=== PATIENT | male | born 1960 | race American Indian/Alaskan Native ===

== ENCOUNTER 2017-08-23 06:03 | Inpatient (IN) | payer MEDICARE, OTHER ==
[2017-08-18 12:05] VITALS: BMI 33.6
--- NOTE | 2017-08-23 07:04 | CP.PCM.HP ---
History of Present Illness - History of Present Illness History of Present Illness: CC: Here for scheduled L hip revision HPI: This is a 56 y/o male with MHx significant for HTN, HLD, 'hyperglycemia', prior R CVA, and seizure disorder who presents for revision of L hip. Patient has no c/c at this time. Denies CP, SOB. Denies f/c/n/v/d. Denies dysuria. Patient has clearance in chart from a Dr. Audie Galeas. Labs, CXR, EKG all WNL. ROS: 14 systems reviewed, negative other than HPI MHx: HTN, HLD, 'hyperglycemia', R CVA, seizure disorder SHx: L hip surgery, meningioma surgery Allergies: contrast dye Medications: Per med rec Family Hx: Reviewed, no relevant findings Social Hx: Lives with family, no tobacco, no EtOH Surrogate: , info pending Present on Admission - Present on Admission Any Indicators Present on Admission: No Past Patient History - Past Medical History & Family History Past Medical History?: Yes - Past Social History Smoking Status: Never Smoked - CARDIAC Hx Cardiac Disorders: Yes Hx Hypertension: Yes - PULMONARY Hx Respiratory Disorders: No - NEUROLOGICAL Hx Neurological Disorder: Yes Hx Seizures: Yes (after brain surgery-1997) - HEENT Hx HEENT Problems: No - RENAL Hx Chronic Kidney Disease: No - ENDOCRINE/METABOLIC Hx Endocrine Disorders: No - HEMATOLOGICAL/ONCOLOGICAL Hx Blood Disorders: No - INTEGUMENTARY Hx Dermatological Problems: No - MUSCULOSKELETAL/RHEUMATOLOGICAL Hx Musculoskeletal Disorders: Yes Other/Comment: numbness on left - GASTROINTESTINAL Hx Gastrointestinal Disorders: No - GENITOURINARY/GYNECOLOGICAL Hx Genitourinary Disorders: Yes Hx Prostate Problems: Yes (enlarge) - PSYCHIATRIC Hx Psychophysiologic Disorder: No - SURGICAL HISTORY Hx Surgeries: Yes Hx Orthopedic Surgery: Yes (left hip total) - ANESTHESIA Hx Anesthesia: Yes Hx Anesthesia Reactions: No Hx Malignant Hyperthermia: No Has any member of the family had a problem w/ anesthesia?: No Meds Allergies/Adverse Reactions: Allergies Allergy/AdvReac Type Severity Reaction Status Date / Time constrast Allergy VOMITING Uncoded 08/18/17 12:06 Physical Exam - Constitutional Appears: No Acute Distress - Head Exam Head Exam: ATRAUMATIC, NORMOCEPHALIC - Eye Exam Eye Exam: EOMI, PERRL - ENT Exam ENT Exam: Mucous Membranes Moist - Neck Exam Neck exam: Positive for: Full Rom - Respiratory Exam Respiratory Exam: Clear to Auscultation Bilateral, NORMAL BREATHING PATTERN - Cardiovascular Exam Cardiovascular Exam: REGULAR RHYTHM, +S1, +S2 - GI/Abdominal Exam GI & Abdominal Exam: Normal Bowel Sounds, Soft - Extremities Exam Extremities exam: Positive for: full ROM, normal inspection Additional comments: L hip stiffness - Neurological Exam Neurological exam: Alert, CN II-XII Intact, Oriented x3 - Psychiatric Exam Psychiatric exam: Normal Affect, Normal Mood - Skin Skin Exam: Dry, Warm Results - Vital Signs Recent Vital Signs: Last Vital Signs Temp 98.8 F 08/23/17 06:53 Pulse 100 H 08/23/17 06:55 Resp 20 08/23/17 06:53 BP 147/104 H 08/23/17 06:53 Pulse Ox 97 08/23/17 06:53 Assessment & Plan (1) Aftercare following left hip joint replacement surgery Assessment and Plan: 56 y/o male here for scheduled L hip revision. 1) L hip surgery -Routine post-op care -Pain management 2) HTN -- resume home medications post surgery 3) HLD -- resume statins 4) 'hyperglycemia' --accuchecks ACHS for now, coverage if needed 5) Seizure disorder -- continue home medications 6) DVT PPx -- Lovenox SQ when cleared by surgery Status: Acute (2) HTN (hypertension) Status: Acute (3) HLD (hyperlipidemia) Status: Acute (4) Hyperglycemia Status: Acute
[2017-08-23] MEDS ORDERED: Lactated Ringer's 1,000 ML IV ONE ×2 (07:22→20:00)
[2017-08-23] MEDS ORDERED: Absorbable Gelatin Sponge Size 100 ONE (14:18)
[2017-08-23] MEDS ORDERED: Thrombin Topical 5,000 Int Units Spray Kit ONE (14:18)
[2017-08-23] MEDS ORDERED: Bupivacaine 0.5% Inj(30mL) ONE (14:18)
[2017-08-23] MEDS ORDERED: Bacitracin Ointment 30 GM TUBE ONE (14:18)
[2017-08-23] MEDS ORDERED: Propofol 10 mg/ml Inj (20 ML) ONE ×2 (14:58→19:48)
[2017-08-23] MEDS ORDERED: Midazolam 2 MG/2 ML VIAL ONE (14:58)
[2017-08-23] MEDS ORDERED: Morphine 1 mg/ml preservative-free Inj(Duramorph) ONE (14:58)
[2017-08-23] MEDS ORDERED: Rocuronium 10 mg/ml (5 ml) ONE ×2 (16:53→19:47)
[2017-08-23] MEDS ORDERED: Phenylephrine 10 mg/ml Inj ONE (17:01)
[2017-08-23] MEDS ORDERED: Vecuronium 10 mg Inj ONE (17:18)
[2017-08-23] MEDS ORDERED: Bacitracin OINT 15GM TOP ONE (20:07)
--- NOTE | 2017-08-23 20:21 | PCM.SURG1 ---
Surgeon's Initial Post Op Note - Surgeon's Notes Surgeon: Clotilde Precast [employer] Installer: CURT Iniguez/ruben Type of Anesthesia: General LMA, Spinal Anesthesia Administered By: Dr Cat Pre-Operative Diagnosis: Painful L Bipolar hip replacement Operative Findings: wellfixed femoral stem. abrasion/wear erosion acetabulumwith metallosis. synovitis Post-Operative Diagnosis: as above Operation Performed: Revision L THR ( femoral head/acetabular compmnent). femoral neck osteotomy. release iliopsoas tendon. autograft bone graft to acetabulum. computer navigation Specimen/Specimens Removed: bipolar comonent /femoral head/bone/synovium/tendon Estimated Blood Loss: EBL {In ML}: 100 Blood Products Given: N/A Drains Used: No Drains Date of Surgery/Procedure: 08/23/17 Time of Surgery/Procedure: 17:45 (time in room 1630/anaesthesia induction time)
[2017-08-23] MEDS ORDERED: Oxycodone/Acetaminophen 5/325 mg Tab PO PRN (20:36)
[2017-08-23] MEDS ORDERED: DiphenhydrAMINE 50 mg/ml Inj IVP PRN (20:46)
[2017-08-23] MEDS ORDERED: Naloxone 0.4 mg/ml Inj (Adult) IVP PRN (21:04)
[2017-08-23] MEDS ORDERED: Pneumococcal 23-Valent Vaccine IM ONE (23:12)
[2017-08-24] MEDS: ceFAZolin 2 GM in Sodium Chloride 0.9% 100 ML IVPB SCH ×2 (01:30→09:52)
[2017-08-24 05:27] LABS: HEMOGLOBIN 14.1 g/dL (12.0-18.0); MEAN CELL VOLUME 94.3 fl (80.0-94.0); MEAN CORPUSCULAR HEMOGLOBIN 31.6 pg (27.0-31.0); MEAN CORPUSCULAR HGB CONC 33.5 g/dL (33.0-37.0); RBC 4.44 Mil/uL (4.40-5.90); RED CELL DISTRIBUTION WIDTH 13.8 % (11.5-14.5)
[2017-08-24 05:36] LABS: BLOOD UREA NITROGEN 11 mg/dl (9-20); CALCIUM 9.4 mg/dL (8.4-10.2); GFR AFRICAN-AMERICAN > 60; GFR NON-AFRICAN AMERICAN > 60
--- NOTE | 2017-08-24 08:16 | CP.PCM.PN ---
Subjective - Date & Time of Evaluation Date of Evaluation: 08/24/17 Time of Evaluation: 08:14 - Subjective Subjective: Patient seen and examined at bedside comfortable. Pain well controlled. He is having difficulty urinating this AM with history of BPH, urology was consulted. Has not been OOB yet this AM. No acute events overnight. Objective - Vital Signs/Intake and Output Vital Signs (last 24 hours): Temp Pulse Resp BP Pulse Ox 98.6 F 99 H 21 152/57 H 99 08/24/17 04:00 08/24/17 06:00 08/24/17 06:00 08/24/17 06:00 08/24/17 06:00 Intake and Output: 08/24/17 08/24/17 06:59 18:59 Intake Total 500 Balance 500 - Medications Medications: Current Medications Acetaminophen (Tylenol 325mg Tab) 325 mg PO Q4 PRN PRN Reason: Pain, Mild (1-3) Aripiprazole (Abilify) 5 mg PO DAILY [facility] Aspirin (Ecotrin) 81 mg PO BID [facility] Cholecalciferol (Vitamin D) 1,000 intlu PO BID [facility] Cyclobenzaprine HCl (Flexeril) 5 mg PO DAILY [facility] Diphenhydramine HCl (Benadryl) 25 mg IVP Q6 PRN PRN Reason: Itching / Pruritus Stop: 08/24/17 23:59 Enoxaparin Sodium (Lovenox) 40 mg SC DAILY [facility] PRN Reason: Protocol Fluticasone Propionate (Flonase) 1 spr CLIFF DAILY [facility] Home Med (Carbamazepine [Carbamazepine Er]) 300 mg PO DAILY [facility] Home Med (Fish Oil/Borage/Flax/Om3,6,9#1 [Hansen 3-6-9 Complex Softgel]) 400 mg PO DAILY [facility] Hydromorphone HCl (Dilaudid 0.2 Mg/[facility] [employer]) 0 mg IV PRN PRN; Protocol PRN Reason: Pain, severe (8-10) Stop: 08/25/17 23:59 Last Admin: 08/24/17 04:32 Dose: 6 mg Cefazolin Sodium 2 gm/ Sodium (Chloride) 100 mls @ 100 mls/hr IVPB Q8 [facility] PRN Reason: Protocol Stop: 08/24/17 09:59 Last Admin: 08/24/17 01:30 Dose: 100 mls/hr Multivitamins/Minerals (Therapeutic-M Tab) 1 tab PO DAILY [facility] Naloxone HCl (Narcan) 0.1 mg IVP Q2M PRN PRN Reason: Excess sedation Stop: 08/25/17 23:59 Ondansetron HCl (Zofran Inj) 4 mg IVP Q6 PRN PRN Reason: Nausea/Vomiting Oxycodone/Acetaminophen (Percocet 5/325 Mg Tab) 1 tab PO Q4 PRN PRN Reason: Pain, moderate (4-7) Stop: 08/26/17 20:37 Oxycodone/Acetaminophen (Percocet 5/325 Mg Tab) 2 tab PO Q4 PRN PRN Reason: Pain, severe (8-10) Stop: 08/26/17 20:37 Pravastatin Sodium (Pravachol) 80 mg PO DAILY [facility] Sertraline HCl (Zoloft) 100 mg PO DAILY [facility] Tamsulosin HCl (Flomax) 0.4 mg PO DAILY [facility] Valsartan (Diovan) 80 mg PO DAILY [facility] - Labs Labs: 08/24/17 04:20 08/24/17 04:20 - Constitutional Appears: No Acute Distress - Eye Exam Eye Exam: Normal appearance - ENT Exam ENT Exam: Mucous Membranes Moist - GI/Abdominal Exam GI & Abdominal Exam: Tenderness - Extremities Exam Additional comments: L hip: Dressings clean, dry and intact. Mild tenderness secondary to surgery. Mild to mod swelling. No erythema. Sensation intact to SP/DP/TN slightly diminished due to history of stroke, motor intact EHL/FHL/TA (foot drop due to history of stroke), pedal pulses intact. Calves soft and NT b/l. - Neurological Exam Neurological Exam: Alert, Awake, Oriented x3 - Psychiatric Exam Psychiatric exam: Normal Affect, Normal Mood - Skin Skin Exam: Normal Color Assessment and Plan (1) Pain due to hip joint prosthesis Assessment & Plan: Patient is POD#1 s/p L revision SHILOH doing well. -Pain is well controlled. Recommend d/c JANITOR, transition to prn meds -PT/OT WBAT with walker -maintain ABD pillow while in bed/chair -DVT ppx -will d/w with Dr. Mabry Status: Acute
[2017-08-24] MEDS: Pravastatin Sodium 40 MG TAB PO SCH (08:29)
[2017-08-24] MEDS: Cholecalciferol 1,000 INTLU TAB PO SCH ×2 (08:30→16:57)
[2017-08-24] MEDS: Multivitamin With Minerals Tab PO SCH (08:33)
--- NOTE | 2017-08-24 09:14 | RAD ---
PROCEDURE: Left Hip X-ray Radiographs. HISTORY: s/p left revision hip replacement COMPARISON: None. FINDINGS: The patient is status post total left hip arthroplasty with prosthetic components seen in good alignment. A small amount expected air and fluid is seen adjacent to the surgical bed. Skin stan are seen superficially. The sacroiliac joints are intact. Evaluation of the sacrum is limited by overlying bowel gas and stool. The ilioischial and iliopectineal lines are smooth. IMPRESSION: Status post left hip arthroplasty.
[2017-08-24] MEDS ORDERED: HYDROmorphone 1 mg/ml ISec IVP PRN (11:17)
--- NOTE | 2017-08-24 15:33 | CP.PCM.PN ---
Subjective - Date & Time of Evaluation Date of Evaluation: 08/24/17 Time of Evaluation: 08:00 - Subjective Subjective: Patient was seen and examined at bedside. He complains of some minimal pain to left hip but it is controlled with pain medication. C/o some anxiety this morning as well. Denies any cp/sob/n/v/d/f/c. Hemodynamically stable and in NAD. POD #1. Being transferred to med/surg today. Objective - Vital Signs/Intake and Output Vital Signs (last 24 hours): Temp Pulse Resp BP Pulse Ox 98.2 F 100 H 28 H 119/75 100 08/24/17 12:00 08/24/17 12:00 08/24/17 12:00 08/24/17 12:00 08/24/17 12:00 Intake and Output: 08/24/17 08/24/17 06:59 18:59 Intake Total 500 500 Output Total 400 Balance 500 100 - Medications Medications: Current Medications Acetaminophen (Tylenol 325mg Tab) 325 mg PO Q4 PRN PRN Reason: Pain, Mild (1-3) Alprazolam (Xanax) 0.5 mg PO Q8 PRN PRN Reason: Anxiety Aripiprazole (Abilify) 5 mg PO DAILY [facility] Last Admin: 08/24/17 08:28 Dose: 5 mg Aspirin (Ecotrin) 81 mg PO BID [facility] Last Admin: 08/24/17 08:28 Dose: 81 mg Cholecalciferol (Vitamin D) 1,000 intlu PO BID [facility] Last Admin: 08/24/17 08:30 Dose: 1,000 intlu Cyclobenzaprine HCl (Flexeril) 5 mg PO DAILY [facility] Last Admin: 08/24/17 08:29 Dose: 5 mg Diphenhydramine HCl (Benadryl) 25 mg IVP Q6 PRN PRN Reason: Itching / Pruritus Stop: 08/24/17 23:59 Enoxaparin Sodium (Lovenox) 40 mg SC DAILY [facility] PRN Reason: Protocol Fluticasone Propionate (Flonase) 1 spr CLIFF DAILY [facility] Last Admin: 08/24/17 08:29 Dose: 1 spr Home Med (Carbamazepine [Carbamazepine Er]) 300 mg PO DAILY [facility] Home Med (Fish Oil/Borage/Flax/Om3,6,9#1 [[place] 3-6-9 Complex Softgel]) 400 mg PO DAILY [facility] Hydromorphone HCl (Dilaudid) 1 mg IVP Q4 PRN PRN Reason: Pain, severe (8-10) Multivitamins/Minerals (Therapeutic-M Tab) 1 tab PO DAILY [facility] Last Admin: 08/24/17 08:33 Dose: 1 tab Naloxone HCl (Narcan) 0.1 mg IVP Q2M PRN PRN Reason: Excess sedation Stop: 08/25/17 23:59 Ondansetron HCl (Zofran Inj) 4 mg IVP Q6 PRN PRN Reason: Nausea/Vomiting Oxycodone/Acetaminophen (Percocet 5/325 Mg Tab) 1 tab PO Q4 PRN PRN Reason: Pain, moderate (4-7) Stop: 08/26/17 20:37 Oxycodone/Acetaminophen (Percocet 5/325 Mg Tab) 2 tab PO Q4 PRN PRN Reason: Pain, severe (8-10) Stop: 08/26/17 20:37 Pravastatin Sodium (Pravachol) 80 mg PO DAILY [facility] Last Admin: 08/24/17 08:29 Dose: 80 mg Sertraline HCl (Zoloft) 100 mg PO DAILY [facility] Last Admin: 08/24/17 08:30 Dose: 100 mg Tamsulosin HCl (Flomax) 0.4 mg PO DAILY [facility] Last Admin: 08/24/17 08:29 Dose: 0.4 mg Valsartan (Diovan) 80 mg PO DAILY [facility] Last Admin: 08/24/17 08:28 Dose: 80 mg - Labs Labs: 08/24/17 04:20 08/24/17 04:20 - Additional Findings Additional findings: Physical exam: Constitutional- cooperative, awake, alert Head- NCAT, PERRL Eye- PERRL, EOMI ENT- normal exam, MMM. Neck- normal inspection, supple, no JVD Respiratory- CTAB, no wheezes rales rhonchi Cardiovascular- RRR, +S1, +S2 no MRG GI/Abdominal- normal bowel sounds, soft, no mass, no hsm Skin- warm, dry Extremities Exam- Left hip dressing c/d/i. normal capillary refill, normal inspection Neurological Exam- alert, awake, oriented Psych- normal mood, normal affect Assessment and Plan - Assessment and Plan (Free Text) Plan: 56 yo male admitted to hospitalist service s/p left hip joint replacement surgery performed by Dr. Mabry 1) Aftercare following left hip joint replacement surgery Assessment and Plan: 56 y/o male here for scheduled L hip revision, now POD #1 2) L hip surgery -Routine post-op care -Pain management- d/c Dilaudid BUSINESS SERVICES ANALYST and switch to Percocet sliding scale with 1 mg IVP q 4 hours for breakthrough pain. 3) Urinary retension postoperatively with history of BPH - Dr. Hernandez called on consultation for urology - Patient voided 400 cc this morning but still retaining somewhat - Start Flomax 0.4 mg po daily 4) HTN -- resume home medications post surgery - Diovan 80 mg po daily - 5) HLD - Pravastatin, home medication - Chronic 6) 'hyperglycemia' -accuchecks ACHS for now, coverage if needed. - So far controlled 7) Seizure disorder -- continue home medications 8) DVT PPx -- Lovenox SQ tomorrow morning as ordered by surgery ASA BID Status: Acute 9) Anxiety Xanax 0.5 mg po q8h PRN - Abilify (pt takes at home)
[2017-08-24] MEDS: Oxycodone/Acetaminophen 5/325 mg Tab PO PRN (16:59)
[2017-08-24] MEDS ORDERED: Simethicone 80 mg Chewtab PO STA (22:43)
[2017-08-25 06:49] LABS: HEMOGLOBIN 12.2 g/dL (12.0-18.0); MEAN CELL VOLUME 94.1 fl (80.0-94.0); RBC 3.82 Mil/uL (4.40-5.90); RED CELL DISTRIBUTION WIDTH 13.4 % (11.5-14.5); WHITE BLOOD COUNT 11.8 K/uL (4.8-10.8)
[2017-08-25 07:07] LABS: BLOOD UREA NITROGEN 12 mg/dl (9-20); CALCIUM 9.4 mg/dL (8.4-10.2); GFR AFRICAN-AMERICAN > 60; GFR NON-AFRICAN AMERICAN > 60
--- NOTE | 2017-08-25 08:13 | CP.PCM.PN ---
<Shnu Schumacher - Last Filed: 08/25/17 13:10> Subjective - Date & Time of Evaluation Date of Evaluation: 08/25/17 Time of Evaluation: 08:21 - Subjective Subjective: Hospitalist Progress Note- Dr. Chavez 56 y.o male seen and evaluated at bedside 2 days s/p revision of total left hip replacement. Patient is seen resting comfortably at bedside, in NAD, and AA0x3. Denies overnight acute events. Reports pain to the upper leg and hip. He rates his pain 7/10 at the moment. Reports overall muscle stiffness to the upper body. Reports being able to work with physical therapy to get out bed and into bed yesterday. Patient reports able to urinate since last yesterday. Able to urinate more freely. Hasn't produce a BM yet. Reports flatus. Denies n/v/sob/cp/ chills or f. Objective - Vital Signs/Intake and Output Vital Signs (last 24 hours): Temp Pulse Resp BP Pulse Ox 99.2 F 106 H 20 105/69 95 08/25/17 07:47 08/25/17 07:47 08/25/17 07:47 08/25/17 07:47 08/25/17 07:47 Intake and Output: 08/25/17 08/25/17 06:59 18:59 Output Total 1000 Balance -1000 - Medications Medications: Current Medications Acetaminophen (Tylenol 325mg Tab) 325 mg PO Q4 PRN PRN Reason: Pain, Mild (1-3) Alprazolam (Xanax) 0.5 mg PO Q8 PRN PRN Reason: Anxiety Aripiprazole (Abilify) 5 mg PO DAILY [facility] Last Admin: 08/24/17 08:28 Dose: 5 mg Aspirin (Ecotrin) 81 mg PO BID [facility] Last Admin: 08/24/17 16:56 Dose: 81 mg Cholecalciferol (Vitamin D) 1,000 intlu PO BID [facility] Last Admin: 08/24/17 16:57 Dose: 1,000 intlu Cyclobenzaprine HCl (Flexeril) 5 mg PO DAILY [facility] Last Admin: 08/24/17 08:29 Dose: 5 mg Fluticasone Propionate (Flonase) 1 spr CLIFF DAILY [facility] Last Admin: 08/24/17 08:29 Dose: 1 spr Home Med (Carbamazepine [Carbamazepine Er]) 300 mg PO DAILY [facility] Hydromorphone HCl (Dilaudid) 1 mg IVP Q4 PRN PRN Reason: Pain, severe (8-10) Multivitamins/Minerals (Therapeutic-M Tab) 1 tab PO DAILY [facility] Last Admin: 08/24/17 08:33 Dose: 1 tab Naloxone HCl (Narcan) 0.1 mg IVP Q2M PRN PRN Reason: Excess sedation Stop: 08/25/17 23:59 Rimli-0-Upfd Ethyl Esters (Lovaza) 2 gm PO BID [facility] Ondansetron HCl (Zofran Inj) 4 mg IVP Q6 PRN PRN Reason: Nausea/Vomiting Last Admin: 08/24/17 22:46 Dose: 4 mg Oxycodone/Acetaminophen (Percocet 5/325 Mg Tab) 1 tab PO Q4 PRN PRN Reason: Pain, moderate (4-7) Stop: 08/26/17 20:37 Last Admin: 08/24/17 16:59 Dose: 1 tab Oxycodone/Acetaminophen (Percocet 5/325 Mg Tab) 2 tab PO Q4 PRN PRN Reason: Pain, severe (8-10) Stop: 08/26/17 20:37 Last Admin: 08/25/17 07:12 Dose: 2 tab Pravastatin Sodium (Pravachol) 80 mg PO DAILY [facility] Last Admin: 08/24/17 08:29 Dose: 80 mg Sertraline HCl (Zoloft) 100 mg PO DAILY [facility] Last Admin: 08/24/17 08:30 Dose: 100 mg Tamsulosin HCl (Flomax) 0.4 mg PO DAILY [facility] Last Admin: 08/24/17 08:29 Dose: 0.4 mg Valsartan (Diovan) 80 mg PO DAILY [facility] Last Admin: 08/24/17 08:28 Dose: 80 mg - Labs Labs: 08/25/17 05:20 08/25/17 05:20 - Constitutional Appears: Well, Non-toxic, No Acute Distress - Head Exam Head Exam: ATRAUMATIC, NORMOCEPHALIC - Eye Exam Eye Exam: EOMI, Normal appearance, PERRL Pupil Exam: NORMAL ACCOMODATION - ENT Exam ENT Exam: Mucous Membranes Moist, Normal Exam - Neck Exam Neck Exam: Full ROM, Normal Inspection - Respiratory Exam Respiratory Exam: NORMAL BREATHING PATTERN. absent: Rales, Rhonchi, Wheezes, Respiratory Distress, Stridor - Cardiovascular Exam Cardiovascular Exam: REGULAR RHYTHM, +S1, +S2 - GI/Abdominal Exam GI & Abdominal Exam: Tenderness, Normal Bowel Sounds - Extremities Exam Extremities Exam: absent: Calf Tenderness Additional comments: Dressing to the left hip is c/d/i without strikethrough RODRI dressing is intact Temperature gradient WNL, CFT < 3 seconds, edema noted to the upper thigh region Protective and gross sensation intact Patient able to wiggle toes - Back Exam Back Exam: NORMAL INSPECTION. absent: CVA tenderness (L), CVA tenderness (R) - Neurological Exam Neurological Exam: Alert, Awake, Oriented x3 - Psychiatric Exam Psychiatric exam: Normal Affect, Normal Mood - Skin Skin Exam: Dry, Normal Color, Warm Assessment and Plan - Assessment and Plan (Free Text) Assessment: 56 y.o male 2 days s/p revision of left total hip replacement Plan: 1) Aftercare following left hip joint replacement surgery Assessment and Plan: 56 y/o male here for scheduled L hip revision, now POD #2 2) L hip surgery -Routine post-op care -Pain management- d/c Dilaudid MIXING PAN TENDER and switch to Percocet sliding scale with Dilaudid 1 mg IVP q 4 hours for breakthrough pain. 3) Urinary retention postoperatively with history of BPH - Dr. Hernandez called on consultation for urology - Patient voided 400 cc yesterday but still retaining somewhat - Start Flomax 0.4 mg po daily 4) HTN - resume home medications post surgery - Diovan 80 mg po daily 5) HLD - Pravastatin, home medication - Chronic 6) 'hyperglycemia' -accuchecks ACHS for now, coverage if needed. - So far controlled 7) Seizure disorder -- continue home medications 8) DVT PPx -- c/w ASA BID d/c Lovenox 9) Anxiety Xanax 0.5 mg po q8h PRN - Abilify (pt takes at home) <Jalen Chavez - Last Filed: 08/25/17 17:23> Objective - Vital Signs/Intake and Output Vital Signs (last 24 hours): Temp Pulse Resp BP Pulse Ox 98.4 F 97 H 18 134/97 H 96 08/25/17 15:54 08/25/17 15:54 08/25/17 15:54 08/25/17 15:54 08/25/17 15:54 Intake and Output: 08/25/17 08/25/17 06:59 18:59 Intake Total 300 Output Total 1000 Balance -1000 300 - Medications Medications: Current Medications Acetaminophen (Tylenol 325mg Tab) 325 mg PO Q4 PRN PRN Reason: Pain, Mild (1-3) Alprazolam (Xanax) 0.5 mg PO Q8 PRN PRN Reason: Anxiety Aripiprazole (Abilify) 5 mg PO DAILY [facility] Last Admin: 08/25/17 08:42 Dose: 5 mg Aspirin (Ecotrin) 81 mg PO BID [facility] Last Admin: 08/25/17 17:06 Dose: 81 mg Cholecalciferol (Vitamin D) 1,000 intlu PO BID [facility] Last Admin: 08/25/17 17:21 Dose: 1,000 intlu Cyclobenzaprine HCl (Flexeril) 5 mg PO DAILY [facility] Last Admin: 08/25/17 08:45 Dose: 5 mg Cyclobenzaprine HCl (Flexeril) 5 mg PO TID PRN PRN Reason: Muscle spasm Fluticasone Propionate (Flonase) 1 spr CLIFF DAILY [facility] Last Admin: 08/25/17 08:46 Dose: 1 spr Home Med (Carbamazepine [Carbamazepine Er]) 300 mg PO DAILY [facility] Last Admin: 08/25/17 08:44 Dose: 300 mg Hydromorphone HCl (Dilaudid) 1 mg IVP Q4 PRN PRN Reason: Pain, severe (8-10) Multivitamins/Minerals (Therapeutic-M Tab) 1 tab PO DAILY [facility] Last Admin: 08/25/17 08:50 Dose: 1 tab Naloxone HCl (Narcan) 0.1 mg IVP Q2M PRN PRN Reason: Excess sedation Stop: 08/25/17 23:59 Subcv-5-Byrb Ethyl Esters (Lovaza) 2 gm PO BID [facility] Last Admin: 08/25/17 17:06 Dose: 2 gm Ondansetron HCl (Zofran Inj) 4 mg IVP Q6 PRN PRN Reason: Nausea/Vomiting Last Admin: 08/24/17 22:46 Dose: 4 mg Oxycodone/Acetaminophen (Percocet 5/325 Mg Tab) 1 tab PO Q4 PRN PRN Reason: Pain, moderate (4-7) Stop: 08/26/17 20:37 Last Admin: 08/25/17 09:57 Dose: 1 tab Oxycodone/Acetaminophen (Percocet 5/325 Mg Tab) 2 tab PO Q4 PRN PRN Reason: Pain, severe (8-10) Stop: 08/26/17 20:37 Last Admin: 08/25/17 07:12 Dose: 2 tab Pravastatin Sodium (Pravachol) 80 mg PO DAILY [facility] Last Admin: 08/25/17 08:50 Dose: 80 mg Sertraline HCl (Zoloft) 100 mg PO DAILY [facility] Last Admin: 08/25/17 08:51 Dose: 100 mg Tamsulosin HCl (Flomax) 0.4 mg PO DAILY [facility] Last Admin: 08/25/17 08:46 Dose: 0.4 mg Valsartan (Diovan) 80 mg PO DAILY [facility] Last Admin: 08/25/17 08:44 Dose: 80 mg - Labs Labs: 08/25/17 05:20 08/25/17 05:20 Assessment and Plan - Assessment and Plan (Free Text) Plan: ATTENDING ATTESTATION: Patient was seen and examined. I discussed the case with the resident and agree with the findings and plan as documented in the residents note.
[2017-08-25] MEDS: CARBAMAZEPINE 300 MG PO SCH (08:44)
[2017-08-25] MEDS: Omega-3-Acid Ethyl Esters 1 GM Cap PO SCH ×3 (08:49→17:39)
[2017-08-25] MEDS: Pravastatin Sodium 40 MG TAB PO SCH (08:50)
[2017-08-25] MEDS: Cholecalciferol 1,000 INTLU TAB PO SCH ×2 (08:50→17:21)
[2017-08-25] MEDS: Multivitamin With Minerals Tab PO SCH (08:50)
--- NOTE | 2017-08-25 09:36 | PN ---
DATE: 08/24/2017 CRITICAL CARE PROGRESS NOTE LOCATION: The patient in ICU, bed 422. TIME SPENT: 35 minutes. SUBJECTIVE: The patient is seen and evaluated at the bedside. Past medical, surgical and social history reviewed. Events overnight noted. Postop day #1, status post left total hip arthroplasty for painful left bipolar hip replacement. PAST MEDICAL HISTORY: Significant for craniotomy for meningioma, seizure disorder, hypertension, and diet-uncontrolled hyperglycemia, underwent procedure under LMA and spinal anesthesia, noted to have urinary retention, but able to pass some urine about 400 mL since in ICU. PHYSICAL EXAMINATION: VITAL SIGNS: Temperature 99.7, heart rate 117 to 126, blood pressure 190/101, mean arterial pressure 107, respiratory rate 20, saturations 100% on oxygen 2 L nasal cannula. INTAKE AND OUTPUT: Intake 1500 mL, output 400, positive balance 100 mL. GENERAL: A middle-aged male, alert, awake and oriented to name, place and time. No distress noted. HEAD, EYES, EARS, NOSE AND THROAT: Unremarkable. NECK: Trachea central. CHEST: Bilateral breath sounds, clear to auscultation. HEART: Rhythm regular. S1 and S2 normal intensity. No S3, S4 or gallop. No audible murmur. ABDOMEN: Bowel sounds are present. Soft. Liver and spleen not palpable. Bladder not distended. EXTREMITIES: Dressing intact on the left hip. No noted. DP palpable. No palpable cord. NEUROLOGIC: Nonfocal. CURRENT MEDICATIONS: Tylenol 325 p.o. q.4 hours p.r.n., Abilify 5 mg p.o. daily, aspirin 81 mg p.o. b.i.d., vitamin D 1000 international units p.o. twice daily, Flexeril 5 mg p.o. daily, Benadryl 25 mg IV q.6 hours p.r.n., Lovenox 40 subcu daily, Flonase one spray to both nostrils daily, hydromorphone IV p.r.n. for pain therapeutic one tablet daily, Narcan 0.1 IV q.2 hours p.r.n. for excess sedation, Percocet 5/325 mg p.o. q.4 hours p.r.n., Pravachol 80 mg daily, Zoloft 100 mg daily, Flomax 0.4 mg daily, and Diovan 80 mg daily. LABORATORY DATA: WBC 18, hemoglobin 14.1, hematocrit 41.9, and platelet count 218. SMA-7; sodium 142, potassium 4.2, chloride 100, CO2 27, blood urea nitrogen 11, creatinine 1, glucose 137, and calcium 9.4. Microbiology; none reported. X-ray of the hip and pelvis shows small amount excepted air and fluid, adjacent to the surgical bed, skin stan superficially. Sacroiliac joints are intact. Evaluation of the sacrum limited by overlying bowel gas and stools. The lines are smooth, status post left hip arthroplasty. IMPRESSION: Postoperative day #1, status post total left hip arthroplasty. Operative course uneventful, postoperative hemodynamically stable. Continue analgesics as needed. Occupational therapy and physical therapy when okayed by surgery. Hypertension, now controlled. Status post right craniotomy for meningioma with resultant seizure, currently controlled, on antiseizure medications. History of depression, on Abilify and Zoloft. Continue the same. Hyperlipidemia, on Pravachol. History of benign hypertropic prostate, on Flomax. secondary to the effect of anesthetic medications and the patient's urinary output continues to improve, closely monitor. Urology consult are requested. If retention persist and to have the Donoh[place] in place. Levi Mojica MD
[2017-08-25] MEDS: Oxycodone/Acetaminophen 5/325 mg Tab PO PRN ×2 (09:57→20:03)
[2017-08-25] MEDS ORDERED: Enoxaparin 40 mg Syringe SC SCH (12:00)
--- NOTE | 2017-08-25 13:35 | CP.PCM.PN ---
Subjective - Date & Time of Evaluation Date of Evaluation: 08/25/17 Time of Evaluation: 07:30 - Subjective Subjective: Patient was seen and examined at bedside. Pain well controlled. Magda diet. Ablility to urinate improved. No acute events overnight. Objective - Vital Signs/Intake and Output Vital Signs (last 24 hours): Temp Pulse Resp BP Pulse Ox 99.2 F 108 H 20 105/69 95 08/25/17 07:47 08/25/17 09:05 08/25/17 07:47 08/25/17 07:47 08/25/17 09:05 Intake and Output: 08/25/17 08/25/17 06:59 18:59 Intake Total 300 Output Total 1000 Balance -1000 300 - Medications Medications: Current Medications Acetaminophen (Tylenol 325mg Tab) 325 mg PO Q4 PRN PRN Reason: Pain, Mild (1-3) Alprazolam (Xanax) 0.5 mg PO Q8 PRN PRN Reason: Anxiety Aripiprazole (Abilify) 5 mg PO DAILY [facility] Last Admin: 08/25/17 08:42 Dose: 5 mg Aspirin (Ecotrin) 81 mg PO BID [facility] Last Admin: 08/25/17 08:45 Dose: 81 mg Cholecalciferol (Vitamin D) 1,000 intlu PO BID [facility] Last Admin: 08/25/17 08:50 Dose: 1,000 intlu Cyclobenzaprine HCl (Flexeril) 5 mg PO DAILY [facility] Last Admin: 08/25/17 08:45 Dose: 5 mg Cyclobenzaprine HCl (Flexeril) 5 mg PO TID PRN PRN Reason: Muscle spasm Fluticasone Propionate (Flonase) 1 spr CLIFF DAILY [facility] Last Admin: 08/25/17 08:46 Dose: 1 spr Home Med (Carbamazepine [Carbamazepine Er]) 300 mg PO DAILY [facility] Last Admin: 08/25/17 08:44 Dose: 300 mg Hydromorphone HCl (Dilaudid) 1 mg IVP Q4 PRN PRN Reason: Pain, severe (8-10) Multivitamins/Minerals (Therapeutic-M Tab) 1 tab PO DAILY [facility] Last Admin: 08/25/17 08:50 Dose: 1 tab Naloxone HCl (Narcan) 0.1 mg IVP Q2M PRN PRN Reason: Excess sedation Stop: 08/25/17 23:59 [id number] Ethyl Esters (Lovaza) 2 gm PO BID [facility] Last Admin: 08/25/17 08:49 Dose: 2 gm Ondansetron HCl (Zofran Inj) 4 mg IVP Q6 PRN PRN Reason: Nausea/Vomiting Last Admin: 08/24/17 22:46 Dose: 4 mg Oxycodone/Acetaminophen (Percocet 5/325 Mg Tab) 1 tab PO Q4 PRN PRN Reason: Pain, moderate (4-7) Stop: 08/26/17 20:37 Last Admin: 08/25/17 09:57 Dose: 1 tab Oxycodone/Acetaminophen (Percocet 5/325 Mg Tab) 2 tab PO Q4 PRN PRN Reason: Pain, severe (8-10) Stop: 08/26/17 20:37 Last Admin: 08/25/17 07:12 Dose: 2 tab Pravastatin Sodium (Pravachol) 80 mg PO DAILY [facility] Last Admin: 08/25/17 08:50 Dose: 80 mg Sertraline HCl (Zoloft) 100 mg PO DAILY [facility] Last Admin: 08/25/17 08:51 Dose: 100 mg Tamsulosin HCl (Flomax) 0.4 mg PO DAILY [facility] Last Admin: 08/25/17 08:46 Dose: 0.4 mg Valsartan (Diovan) 80 mg PO DAILY [facility] Last Admin: 08/25/17 08:44 Dose: 80 mg - Labs Labs: 08/25/17 05:20 08/25/17 05:20 - Extremities Exam Additional comments: L hip: Dressings clean, dry and intact. Dressings taken down revealing wound clean dry and intact with stan. Mild tenderness secondary to surgery. Mild to mod swelling. No erythema. Sensation intact to SP/DP/TN slightly diminished due to history of stroke, motor intact EHL/FHL/TA (foot drop due to history of stroke), pedal pulses intact. Calves soft and NT b/l. Assessment and Plan (1) Pain due to hip joint prosthesis Assessment & Plan: Patient is POD#2 s/p L revision SHILOH doing well. -Dressings changed -Pain is well controlled -PT/OT WBAT with walker -maintain ABD pillow while in bed/chair -DVT ppx -d/c planning -will d/w with Dr. Mabry Status: Acute
[2017-08-25] MEDS ORDERED: Simethicone 40 mg/0.6 ml Liquid (30 ml) PO STA (21:29)
[2017-08-25 23:48] VITALS: RESP 20; O2SAT 97
[2017-08-26] MEDS: Oxycodone/Acetaminophen 5/325 mg Tab PO PRN (05:32)
[2017-08-26 06:36] LABS: HEMOGLOBIN 11.6 g/dL (12.0-18.0); MEAN CELL VOLUME 94.7 fl (80.0-94.0); MEAN CORPUSCULAR HEMOGLOBIN 31.7 pg (27.0-31.0); MEAN CORPUSCULAR HGB CONC 33.5 g/dL (33.0-37.0); RBC 3.65 Mil/uL (4.40-5.90); RED CELL DISTRIBUTION WIDTH 13.5 % (11.5-14.5); WHITE BLOOD COUNT 12.5 K/uL (4.8-10.8)
[2017-08-26 06:46] LABS: BLOOD UREA NITROGEN 10 mg/dl (9-20); CALCIUM 9.3 mg/dL (8.4-10.2); GFR AFRICAN-AMERICAN > 60; GFR NON-AFRICAN AMERICAN > 60
[2017-08-26 07:51] VITALS: BP 105/70; PULSE 100; TEMP 99.7
--- NOTE | 2017-08-26 09:15 | CP.PCM.DIS ---
Provider - Provider Date of Admission: 08/23/17 20:41 Attending physician: Dipti Gates MD Primary care physician: Bahman Mabry III, MD Consults: Ortho : Dr Mabry Urology : Dr Hernandez Time Spent in preparation of Discharge (in minutes): 25 Diagnosis - Discharge Diagnosis (1) Status post revision of total hip replacement Status: Acute (2) HTN (hypertension) Status: Chronic (3) Hyperglycemia Status: Acute (4) Meningioma Status: Chronic (5) Seizure disorder Status: Chronic (6) HLD (hyperlipidemia) Status: Chronic Hospital Course - Lab Results Lab Results: Most Recent Lab Values WBC 12.5 K/uL (4.8-10.8) H 08/26/17 05:40 RBC 3.65 Mil/uL (4.40-5.90) L 08/26/17 05:40 Hgb 11.6 g/dL (12.0-18.0) L 08/26/17 05:40 Hct 34.6 % (35.0-51.0) L 08/26/17 05:40 MCV 94.7 fl (80.0-94.0) H 08/26/17 05:40 MCH 31.7 pg (27.0-31.0) H 08/26/17 05:40 MCHC 33.5 g/dL (33.0-37.0) 08/26/17 05:40 RDW 13.5 % (11.5-14.5) 08/26/17 05:40 Plt Count 154 K/uL (130-400) 08/26/17 05:40 Sodium 137 mmol/l (132-148) 08/26/17 05:40 Potassium 4.1 MMOL/L (3.6-5.0) 08/26/17 05:40 Chloride 96 mmol/L (98-107) L 08/26/17 05:40 Carbon Dioxide 30 mmol/L (22-30) 08/26/17 05:40 Anion Gap 15 (10-20) 08/26/17 05:40 BUN 10 mg/dl (9-20) 08/26/17 05:40 Creatinine 0.8 mg/dl (0.8-1.5) 08/26/17 05:40 Est GFR ( Amer) > 60 03/01/18 05:40 Est GFR (Non-Af Amer) > 60 08/26/17 05:40 POC Glucose (mg/dL) 137 mg/dL (65-110) H 08/24/17 05:46 Random Glucose 125 mg/dL (75-110) H 08/26/17 05:40 Calcium 9.3 mg/dL (8.4-10.2) 08/26/17 05:40 Blood Type O POSITIVE 08/23/17 06:55 Blood Type Confirm O POSITIVE 08/23/17 07:45 Antibody Screen Negative 08/23/17 06:55 Crossmatch See Detail 08/23/17 06:55 BBK History Checked No verified bt 08/23/17 06:55 - Hospital Course Hospital Course: 56 y/o male with hx of Meniongioma, Seizure dis, HTN, Hyperlipidemia admitted for scheduled Revision THR of the left hip. Patient did well intra and post op. He had some post op urinary retention likely due to anesthesia and opiates which resolved . He was evaluated by PT and OT - rec [facility] placement . Post op Pain is well controlled. Plan to d/c pt to [facility] for further therapy. 1. 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 Hernandez called on consultation for urology - started Floamx - pt now voiding freely 3) HTN - resume home medications - Diovan 80 mg po daily 4. Hyperlipidemia -cont Pravastatin, home medication - Chronic 5. History of Meningioma, Seizure hx of left sided weakness and seizure due to meningioma -cont Carbamazepine 6. Hyperglycemia likely due to IVF -accuchecks ACHS for now, coverage if needed. - So far controlled 7. Anxiety Xanax 0.5 mg po q8h PRN - Abilify (pt takes at home) 8. DVT proph - ASpirin bid Discharge Exam - Head Exam Head Exam: NORMAL INSPECTION, NORMOCEPHALIC - Eye Exam Eye Exam: EOMI, Normal appearance Pupil Exam: NORMAL ACCOMODATION - ENT Exam ENT Exam: Mucous Membranes Moist, Normal External Ear Exam - Neck Exam Neck exam: Full Rom - Respiratory Exam Respiratory Exam: NORMAL BREATHING PATTERN. absent: Respiratory Distress - Cardiovascular Exam Cardiovascular Exam: REGULAR RHYTHM, +S1, +S2 - GI/Abdominal Exam GI & Abdominal Exam: Normal Bowel Sounds, Soft. absent: Tenderness - Extremities Exam Extremities exam: normal capillary refill, pedal pulses present Additional comments: no calf tenderness left hip with dressing - Back Exam Back exam: FULL ROM. absent: CVA tenderness (L), CVA tenderness (R) - Neurological Exam Neurological exam: Alert, Oriented x3, Reflexes Normal - Psychiatric Exam Psychiatric exam: Normal Affect, Normal Mood - Skin Skin Exam: Dry, Normal Color, Warm Discharge Plan - Follow Up Plan Condition: GOOD Disposition: TRANSF TO SNF Instructions: Total Hip Replacement (DC), Hypertension (DC) Additional Instructions: ff up with Dr Mabry in 1 wk Referrals: Bahman Mabry III, MD [Primary Care Provider] -
[2017-08-26] MEDS: CARBAMAZEPINE 300 MG PO SCH (09:32)
[2017-08-26] MEDS: Omega-3-Acid Ethyl Esters 1 GM Cap PO SCH (09:35)
[2017-08-26] MEDS: Multivitamin With Minerals Tab PO SCH (09:37)
[2017-08-26] MEDS: Cholecalciferol 1,000 INTLU TAB PO SCH (09:37)
[2017-08-26] MEDS: Pravastatin Sodium 40 MG TAB PO SCH (09:37)
[2017-08-26] MEDS ORDERED: Simethicone 40 mg/0.6 ml Liquid (30 ml) PO PRN (09:42)
[2017-08-26] MEDS ORDERED: Simethicone 80 mg Chewtab PO PRN (10:30)
--- NOTE | 2017-08-27 23:26 | OP ---
PROCEDURE DATE: 08/23/2017 PREOPERATIVE DIAGNOSIS: Painful left bipolar hip replacement. POSTOPERATIVE DIAGNOSES: Painful left bipolar hip replacement with a well fixed femoral stem, overgrowth of bone on the femoral neck, abrasion wear with erosion of the acetabulum with metallosis and synovitis in the acetabulum from the outer bearing of the bipolar. OPERATION PERFORMED: 1. Revision left total hip replacement two components. 2. Femoral neck osteotomy. 3. Release iliopsoas tendon. 4. Autograft bone graft to the acetabulum. 5. Computer navigation with Sharematic. SURGEON: Bahman Mabry MD NANOELECTRONICS ENGINEER: jessa Vora certified registered nursing first aid teacher. SECOND VICE PRINCIPAL: Shun Schumacher DPM SPECIMEN REMOVED: Bipolar component femoral head bone, synovium and tendon. BLOOD LOSS: 100 mL. BLOOD PRODUCTS GIVEN: None. DRAINS USED: No drains. TIME OF SURGERY: Anesthesia induction time 16:30 and surgical incision time 17:45. OPERATIVE INDICATION: Dale Patino is a 56-year-old gentleman who had undergone a bipolar hemiarthroplasty for fracture several years ago. The patient now presents with pain and restricted range of motion of the left hip, but with pain primarily in the area of the groin. The patient has failed conservative management consisting of activity modification, weight loss, and therapy. The patient presents as a referral from his insurance company for revision of the painful hip replacement, bipolar type. Pros, cons, risks and benefits of bipolar revision replacement were discussed. Possibility of mechanical failure, infection, thromboembolic disease, leg-length inequality, nerve injury, secondary or even tertiary surgery was discussed. The patient can no longer withstand the discomfort and wished the surgery to be accomplished. Again informed consent had been accomplished preoperatively. Again the possibility of mechanical failure, infection, thromboembolic disease, secondary or tertiary surgery was discussed. The patient no longer could withstand the discomfort and wished the revision to be accomplished. The possibility of mechanical failure, infection, thromboembolic disease, nerve injury, leg-length inequality were all discussed as possible outcomes. The patient could no longer withstand the discomfort. OPERATIVE PROCEDURE: After having obtained informed consent, after the satisfactory induction of spinal and general anesthesia by Dr. Cat, the patient after having identified side, site and procedure and critical pause/time-out. After the satisfactory induction of the anesthetic, after having obtained informed consent, the patient identified as Dale Ayan is placed in a direct right lateral decubitus position with the left side up. The initial incision was found to be a very posterior southern more approach which is unacceptable for revision in my opinion. The incision described as a posterolateral incision described in the fashion by Monique Garcia's modification of the Reid approach. The skin incision was carried down through the skin and subcutaneous tissue. Hemostasis controlled with electrocautery. The fascia faye was split in line with its fibers, gluteus ruben, is developed and hemostasis controlled with Aquamantys. Wound talus was sewn in, the Charnley retractor was placed with internal rotation of the hip. The posterior capsule was elevated from the posterior aspect of the femur. Arthrotomy of the hip was accomplished at this point in time. Fluid is obtained and sent for aerobic, anaerobic, AFB and fungal cultures as well as stat Gram stain, number of white cells per high-power field. This having been accomplished, the gluteus ruben tendon insertion into the posterior aspect of the femur was released while the arthrotomy and extensive synovectomy was accomplished. There was found to be a massive amount of adhesions and scar tissue. The pelvis was freed from the acetabulum. An incision was used to elevate the reflected head of rectus femoris. The hip was dislocated at this point in time with internal rotation, the iliopsoas tendon was identified and found to be tight. Iliopsoas tendon was released. The anterior capsule was released to the point of the ischial and iliofemoral ligaments. The release having been accomplished, the femoral head is removed using the bone tamp. This having been removed, the femur was swung anteriorly and further debridement of the acetabulum was accomplished. The arthrotomy and synovectomy is carefully accomplished and it should be noted that on dislocation the hip is found to be again a mass of overgrowth of bone on the femoral neck. A femoral neck osteotomy was accomplished using the oscillating saw. At this point in time, great care was taken to evaluate the fit of the femoral component, femoral component was found to be well fixed with no evidence of compromise. This having been accomplished, the femur is swung anteriorly, the acetabulum was exposed, the labrum is removed, the pulvinar was removed and arthrotomy and synovectomy was accomplished. At this point in time, the two pins for the Sharematic computer navigation are introduced into the ileum, two fingerbreadths posterior to the anterior superior iliac spine. This having been accomplished, the wound was thoroughly irrigated. The hip having been dislocated, the pins having been placed, the bracket for the optical accelerometer camera is placed and the registration commences for the plane of the pelvis and this was accomplished and registered from the ASIS on the right and ASIS on the left. The disc is placed in the greater trochanter and the hip was registered in that fashion for leg length. This having been accomplished, the hip having been dislocated, reaming commences after exposure of the acetabulum and synovectomy. Reaming is accomplished to approximately 41 degrees of abduction and 19 degrees of anteversion. Reaming was accomplished to a 54 mm femoral acetabular component. The bone graft was denuded of articular cartilage from the reaming and this was used as autograft bone graft to the acetabulum. This having been accomplished, computer navigation having determined the inclination of the acetabulum, the trial was placed for the dual mobility construct for the total hip. This having been accomplished, reaming having been accomplished, the trial 54 mm was found to be acceptable. The 54-mm Medacta cup was impacted. The femoral head was placed with the outer bearing, it is reduced and found to be stable in all planes. This having been accomplished, the hip having been reduced, it is found to be stable in all planes and the trial of the femoral neck with +5 Irasema head with the 54 mm outer bearing is deemed acceptable. This having been accomplished, this is assembled on the back table with the 28 mm head and the 54 mm outer bearing. This having been accomplished this is assemble. The hip was reduced and found to be stable in all planes. The wound was thoroughly irrigated. The gluteus ruben tendon was repaired and the posterior capsule was repaired and closures in layers, #2 Quill. It should be noted that prior to closure the leg lengths were measured and found to be roughly equal with the computer navigation. Computer navigation had been used to confirm the position of the acetabular component which is acceptable at approximately 41 degrees of abduction and 17 degrees of anteversion. The pins were removed. The stab wounds were closed with Vicryl and nylon. Closure of the fascia latus with #2 Quill followed by 0 Quill, Vicryl, and stan for skin. No drainage is needed. A 100 ml of blood loss. Compression dressing was applied. Bahman Mabry MD
== END 2017-08-26 11:19 | DRG 468 ==
LOC: H.OPSURG 06:03 → H.ERHOLD 20:41 → H.ICU/CCU 22:10 → H.MEDSURG1 08-24 14:31
PROVIDERS: ADMIT Internal Medicine; ATTEND Internal Medicine
PROC: 0SPB09Z Removal of Liner from Left Hip Joint, Open Approach (ICD-10-PCS; 2017-08-23)
PROC: 0SUE09Z Supplement Left Hip Joint, Acetabular Surface with Liner, Open Approach (ICD-10-PCS; 2017-08-23)
PROC: 0SRS0JA Replacement of Left Hip Joint, Femoral Surface with Synthetic Substitute, Uncemented, Open Approach (ICD-10-PCS; 2017-08-23)
PROC: 0SPE0JZ Removal of Synthetic Substitute from Left Hip Joint, Acetabular Surface, Open Approach (ICD-10-PCS; 2017-08-23)
PROC: 0SBB0ZZ Excision of Left Hip Joint, Open Approach (ICD-10-PCS; 2017-08-23)
PROC: 0SPS0JZ Removal of Synthetic Substitute from Left Hip Joint, Femoral Surface, Open Approach (ICD-10-PCS; 2017-08-23)
PROC: 8E0YXBZ Computer Assisted Procedure of Lower Extremity (ICD-10-PCS; 2017-08-23)
PROC: 3E0234Z Introduction of Serum, Toxoid and Vaccine into Muscle, Percutaneous Approach (ICD-10-PCS; principal; 2017-08-24)
DX: T84.84XA Pain due to internal orthopedic prosthetic devices, implants and grafts, initial encounter (principal); T84.061A Wear of articular bearing surface of internal prosthetic left hip joint, initial encounter; E78.5 Hyperlipidemia, unspecified; I10 Essential (primary) hypertension; Y83.1 Surgical operation with implant of artificial internal device as the cause of abnormal reaction of the patient, or of later complication, without mention of misadventure at the time of the procedure; Z23 Encounter for immunization; Z96.642 Presence of left artificial hip joint; N40.1 Benign prostatic hyperplasia with lower urinary tract symptoms; N99.89 Other postprocedural complications and disorders of genitourinary system; R33.8 Other retention of urine; R73.9 Hyperglycemia, unspecified; G40.909 Epilepsy, unspecified, not intractable, without status epilepticus; F41.9 Anxiety disorder, unspecified; Z86.73 Personal history of transient ischemic attack (TIA), and cerebral infarction without residual deficits; Z91.041 Radiographic dye allergy status; M65.9 Synovitis and tenosynovitis, unspecified